=== PATIENT | female | born 1990 | race Caucasian/White ===

== ENCOUNTER 2018-01-08 20:15 | Inpatient (IN) ==
[2018-01-08] MEDS ORDERED: LACTATED RINGERS 1,000 ML IV STA (20:38)
[2018-01-08] MEDS ORDERED: DIPH/TET/ACEL PERT BOOSTER VACCINE 0.5 ML VIAL IM ONE (20:38)
[2018-01-08] MEDS ORDERED: HYDROmorphone 2 MG/1 ML VIAL IV STA (20:38)
[2018-01-08] MEDS ORDERED: ONDANSETRON 4 MG/2 ML VIAL IV STA (20:38)
[2018-01-08 20:48] LABS: Basophils # 0.1 10*3/uL (0.0-0.2); Basophils % 0.4 % (0.0-0.8); Eosinophils # 0.3 10*3/uL (0.0-0.87); Eosinophils % 1.4 % (0.00-10.9); Hematocrit 39.1 VOL% (35.7-47.0); Hemoglobin 13.1 GM/DL (12.0-16.0); Immature Granulocytes % 0.4 %; Immature Granulocytes Absolute 0.08 #; Lymphocytes # 6.2 10*3/uL (1.4-4.0); Lymphocytes % 34.2 % (21.3-54.2); Mean Corpuscular HGB Conc 33.5 GM/DL (32-36); Mean Corpuscular Hemoglobin 30 PG (27-34); Mean Corpuscular Volume 89.9 FL (87-102); Mean Platelet Volume 11.8 FL (9.6-12.0); Monocytes # 1.4 10*3/uL (0.11-0.8); Monocytes % 7.9 % (1.7-12.7); Neutrophils # 10.1 10*3/uL (1.4-7.4); Neutrophils % 55.7 % (38.7-73.9); Platelet Count 289 T/CUMM (130-400); Red Blood Count 4.35 MC/CUMM (3.8-5.5); Red Cell Distribution Width 13.5 % (9.3-17.3); White Blood Count 18.1 T/CUMM (4-12)
[2018-01-08 20:59] LABS: PT Patient Result 10.9 SECS; Partial Thromboplastin Time 25.4 SECS (0-40)
[2018-01-08 21:07] LABS: Barbiturates Screen,Urine Negative (Negative); Benzodiazepines Screen,Urine Negative (Negative); Cannabinoid Screen,Urine Negative (Negative); Opiate Screen,Urine Negative (Negative); Phencyclidine Screen,Urine Negative (Negative)
[2018-01-08 21:15] LABS: Apearance,Urine CLEAR (Clear); Bilirubin,Urine Negative (Negative); Blood, Urine Negative (Negative); Glucose,Urine (UA) Negative (Negative); Granular Casts,Urine 1 /LPF (0-1); Ketones,Urine Negative (Negative); Mucus,Urine Occasional /LPF (Occasional); Nitrite,Urine Negative (Negative); Protein,Urine 30 MG/DL; RBC,Urine 3 /HPF (0-4); Squamous Epithelial Cell,Urine Occasional /HPF (0-10); Urine Color Yellow (Yellow); Urine Specific Gravity 1.024 (1.001-1.035); WBC,Urine 2 /HPF (0-6)
[2018-01-08 21:22] LABS: Alanine Aminotransferase 16 U/L (13-56); Albumin 4.1 G/DL (3.4-5.0); Alkaline Phosphatase 74 U/L (45-117); Amylase 54 U/L (25-115); Aspartate Amino Transferase 17 U/L (0-37); Blood Urea Nitrogen 11 MG/DL (7-18); Calcium 8.6 MG/DL (8.5-10.1); Glucose 120 MG/DL (74-106); Osmolality,Calculated 276.5 MOS/KG (273-304); Potassium 3.2 MMOL/L (3.5-5.1); Sodium 139 MMOL/L (136-145); Total Protein 8.4 G/DL (6.4-8.3)
[2018-01-08] MEDS ORDERED: SODIUM CHLORIDE 0.9% 1,000 ML IV STA (21:45)
[2018-01-08 21:48] LABS: Lactic Acid 2.5 MMOL/L (0.4-2.0)
[2018-01-08] MEDS ORDERED: PROPOFOL 200 MG/20 ML VIAL IV ONE (21:51)
[2018-01-09] MEDS ORDERED: METHOCARBAMOL 500 MG TABLET PO PRN (01:57)
[2018-01-09] MEDS ORDERED: ACETAMINOPHEN 325 MG TABLET PO PRN (01:57)
[2018-01-09] MEDS ORDERED: clonazePAM 0.5 MG TABLET PO PRN (01:57)
[2018-01-09] MEDS ORDERED: ONDANSETRON 4 MG/2 ML VIAL IV PRN (01:57)
[2018-01-09] MEDS ORDERED: ZOLPIDEM 5 MG TABLET PO PRN ×3 (02:26→21:44)
[2018-01-09] MEDS: DEXTROSE 5% NACL 0.45% 1,000 ML IV SCH (02:31)
[2018-01-09] MEDS: HYDROmorphone 2 MG/1 ML VIAL IV PRN ×2 (02:44→20:10)
[2018-01-09] MEDS: PIPERACILLIN/TAZOBACTAM 3,375 MG in SODIUM CHLORIDE 0.9% 100 ML IV SCH ×3 (02:50→17:42)
[2018-01-09 06:38] LABS: Basophils % 0.1 % (0.0-0.8); Eosinophils % 0.1 % (0.00-10.9); Hematocrit 35.4 VOL% (35.7-47.0); Hemoglobin 11.7 GM/DL (12.0-16.0); Immature Granulocytes % 0.7 %; Immature Granulocytes Absolute 0.12 #; Lymphocytes # 1.6 10*3/uL (1.4-4.0); Lymphocytes % 8.9 % (21.3-54.2); Mean Corpuscular HGB Conc 33.1 GM/DL (32-36); Mean Corpuscular Hemoglobin 30 PG (27-34); Mean Corpuscular Volume 90.8 FL (87-102); Mean Platelet Volume 11.9 FL (9.6-12.0); Monocytes # 2.1 10*3/uL (0.11-0.8); Monocytes % 11.3 % (1.7-12.7); Neutrophils # 14.4 10*3/uL (1.4-7.4); Neutrophils % 78.9 % (38.7-73.9); Platelet Count 208 T/CUMM (130-400); Red Cell Distribution Width 13.5 % (9.3-17.3); White Blood Count 18.2 T/CUMM (4-12)
[2018-01-09 07:17] LABS: Albumin 3.7 G/DL (3.4-5.0); Bilirubin,Total 1.1 MG/DL (0.2-1.0); Osmolality,Calculated 270.8 MOS/KG (273-304); Potassium 3.7 MMOL/L (3.5-5.1); Total Protein 7.2 G/DL (6.4-8.3)
[2018-01-09] MEDS ORDERED: LIDOCAINE 1%/EPI INJ 20 ML VIAL ONE (08:30)
[2018-01-09] MEDS ORDERED: BUPIVACAINE 0.25% /EPI 10 ML VIAL ONE (08:30)
[2018-01-09] MEDS: MULTIVITAMIN (PRENATAL) TABLET PO SCH (08:43)
[2018-01-09] MEDS: PANTOPRAZOLE 40 MG TABLET PO SCH (08:43)
[2018-01-09] MEDS ORDERED: PROPOFOL 200 MG/20 ML VIAL IV ONE (09:11)
[2018-01-09] MEDS ORDERED: MIDAZOLAM 2 MG/2 ML VIAL ONE (09:11)
[2018-01-09] MEDS ORDERED: fentaNYL 100 MCG/2 ML VIAL ONE (09:11)
[2018-01-09] MEDS ORDERED: ONDANSETRON 4 MG/2 ML VIAL ONE ×2 (09:11→09:16)
[2018-01-09] MEDS ORDERED: SEVOFLURANE 1 UNIT/15 MINUTE INH ONE (09:11)
[2018-01-09] MEDS ORDERED: PHENYLEPHRINE 1 MG/10 ML SYRINGE IV ONE (09:12)
[2018-01-09] MEDS ORDERED: ZALEPLON 5 MG CAPSULE PO PRN (09:30)
[2018-01-10] MEDS: DEXTROSE 5% NACL 0.45% 1,000 ML IV SCH ×2 (01:36→04:08)
[2018-01-10] MEDS: PIPERACILLIN/TAZOBACTAM 3,375 MG in SODIUM CHLORIDE 0.9% 100 ML IV SCH ×2 (03:01→09:21)
[2018-01-10 06:10] LABS: Basophils % 0.3 % (0.0-0.8); Eosinophils # 0.5 10*3/uL (0.0-0.87); Eosinophils % 4.1 % (0.00-10.9); Hematocrit 34.5 VOL% (35.7-47.0); Hemoglobin 11.5 GM/DL (12.0-16.0); Immature Granulocytes % 0.4 %; Immature Granulocytes Absolute 0.05 #; Lymphocytes # 2.7 10*3/uL (1.4-4.0); Lymphocytes % 21.1 % (21.3-54.2); Mean Corpuscular HGB Conc 33.3 GM/DL (32-36); Mean Corpuscular Hemoglobin 30 PG (27-34); Mean Corpuscular Volume 90.8 FL (87-102); Mean Platelet Volume 12.7 FL (9.6-12.0); Monocytes # 1.8 10*3/uL (0.11-0.8); Monocytes % 14.1 % (1.7-12.7); Neutrophils # 7.8 10*3/uL (1.4-7.4); Platelet Count 203 T/CUMM (130-400); Red Cell Distribution Width 13.5 % (9.3-17.3)
[2018-01-10] MEDS: PANTOPRAZOLE 40 MG TABLET PO SCH (09:17)
[2018-01-10] MEDS: MULTIVITAMIN (PRENATAL) TABLET PO SCH (09:17)
[2018-01-10] MEDS: HYDROmorphone 2 MG/1 ML VIAL IV PRN (13:02)
[2018-01-10] MEDS ORDERED: SILVER SULFADIAZINE 1% CREAM 25 GM TUBE TOP SCH (13:30)
[2018-01-10 16:59] VITALS: BP 127/78
== END 2018-01-10 17:25 | disposition home or self-care (01) | DRG 902 ==
LOC: N.ED 20:15 → N.EDINP 23:46 → N.3E 01-09 00:53
PROVIDERS: ADMIT Surgery; ATTEND Surgery

== ENCOUNTER 2018-02-04 13:19 | Observation (INO) ==
[2018-02-04 14:36] LABS: Basophils % 0.4 % (0.0-0.8); Eosinophils # 0.2 10*3/uL (0.0-0.87); Hemoglobin 12.9 GM/DL (12.0-16.0); Immature Granulocytes % 0.4 %; Immature Granulocytes Absolute 0.02 #; Lymphocytes # 1.8 10*3/uL (1.4-4.0); Lymphocytes % 32.9 % (21.3-54.2); Mean Corpuscular HGB Conc 33.1 GM/DL (32-36); Mean Corpuscular Hemoglobin 30 PG (27-34); Mean Corpuscular Volume 90.9 FL (87-102); Mean Platelet Volume 11.5 FL (9.6-12.0); Monocytes # 0.7 10*3/uL (0.11-0.8); Monocytes % 12.1 % (1.7-12.7); Neutrophils # 2.9 10*3/uL (1.4-7.4); Neutrophils % 51.2 % (38.7-73.9); Platelet Count 235 T/CUMM (130-400); Red Blood Count 4.29 MC/CUMM (3.8-5.5); Red Cell Distribution Width 13.4 % (9.3-17.3); White Blood Count 5.6 T/CUMM (4-12)
[2018-02-04 16:50] LABS: Apearance,Urine CLOUDY (Clear); Bilirubin,Urine Negative (Negative); Blood, Urine Large mg/dL (Negative); Glucose,Urine (UA) Negative (Negative); Ketones,Urine Negative (Negative); Mucus,Urine Occasional /LPF (Occasional); Nitrite,Urine Negative (Negative); Protein,Urine 100 MG/DL; RBC,Urine 1377 /HPF (0-4); Squamous Epithelial Cell,Urine Occasional /HPF (0-10); Urine Color Yellow (Yellow); Urine Specific Gravity 1.016 (1.001-1.035); Urine Urobilinogen < 2.0 EU/DL (0.2-1.0); WBC,Urine 32 /HPF (0-6)
[2018-02-04 17:53] LABS: Osmolality,Calculated 269.8 MOS/KG (273-304); Potassium 3.6 MMOL/L (3.5-5.1)
[2018-02-04] MEDS ORDERED: ONDANSETRON 4 MG/2 ML VIAL IV PRN (19:19)
[2018-02-04] MEDS ORDERED: ACETAMINOPHEN 500 MG TABLET PO PRN (19:19)
[2018-02-04] MEDS ORDERED: METHOTREXATE 50 MG/2 ML VIAL IM ONE (19:19)
[2018-02-04] MEDS ORDERED: clonazePAM 0.5 MG TABLET PO ONE (23:42)
[2018-02-05 07:41] VITALS: BP 80/48
[2018-02-05 08:03] LABS: Basophils % 0.4 % (0.0-0.8); Eosinophils # 0.5 10*3/uL (0.0-0.87); Eosinophils % 6.4 % (0.00-10.9); Hematocrit 34.4 VOL% (35.7-47.0); Hemoglobin 11.8 GM/DL (12.0-16.0); Immature Granulocytes % 0.3 %; Immature Granulocytes Absolute 0.02 #; Lymphocytes % 37.6 % (21.3-54.2); Mean Corpuscular HGB Conc 34.3 GM/DL (32-36); Mean Corpuscular Hemoglobin 31 PG (27-34); Mean Corpuscular Volume 89.4 FL (87-102); Mean Platelet Volume 11.8 FL (9.6-12.0); Monocytes % 12.6 % (1.7-12.7); Neutrophils # 3.4 10*3/uL (1.4-7.4); Neutrophils % 42.7 % (38.7-73.9); Platelet Count 218 T/CUMM (130-400); Red Blood Count 3.85 MC/CUMM (3.8-5.5); Red Cell Distribution Width 13.4 % (9.3-17.3)
[2018-02-05] MEDS ORDERED: PANTOPRAZOLE 40 MG TABLET PO SCH (09:00)
== END 2018-02-05 11:55 | disposition home or self-care (01) ==
LOC: N.ED 13:19 → N.EDINP 19:18 → INTOOBSV 19:18 → N.OB 21:20
PROVIDERS: ADMIT Obstetrics & Gynecology; ATTEND Obstetrics & Gynecology

== ENCOUNTER 2018-02-22 04:36 | Observation (INO) ==
[2018-02-22] MEDS ORDERED: LACTATED RINGERS 1,000 ML IV ONE ×2 (06:31→10:46)
[2018-02-22] MEDS ORDERED: ONDANSETRON 4 MG/2 ML VIAL IV STA (06:31)
[2018-02-22] MEDS ORDERED: MORPHINE 4 MG/1 ML VIAL IV STA (06:31)
[2018-02-22 06:55] LABS: Basophils % 0.2 % (0.0-0.8); Hematocrit 30.5 VOL% (35.7-47.0); Hemoglobin 10.4 GM/DL (12.0-16.0); Immature Granulocytes % 0.5 %; Immature Granulocytes Absolute 0.09 #; Lymphocytes # 1.6 10*3/uL (1.4-4.0); Lymphocytes % 9.3 % (21.3-54.2); Mean Corpuscular HGB Conc 34.1 GM/DL (32-36); Mean Corpuscular Hemoglobin 31 PG (27-34); Mean Corpuscular Volume 90.8 FL (87-102); Mean Platelet Volume 11.5 FL (9.6-12.0); Monocytes # 0.8 10*3/uL (0.11-0.8); Neutrophils # 14.2 10*3/uL (1.4-7.4); Platelet Count 311 T/CUMM (130-400); Red Blood Count 3.36 MC/CUMM (3.8-5.5); Red Cell Distribution Width 13.4 % (9.3-17.3); White Blood Count 16.8 T/CUMM (4-12)
[2018-02-22 07:17] LABS: Albumin 4.2 G/DL (3.4-5.0); Calcium 9.2 MG/DL (8.5-10.1); Potassium 4.3 MMOL/L (3.5-5.1); Total Protein 8.3 G/DL (6.4-8.3)
[2018-02-22] MEDS ORDERED: PANTOPRAZOLE 40 MG VIAL IV STA (08:47)
[2018-02-22] MEDS ORDERED: diphenhydrAMINE 50 MG/1 ML VIAL IV PRN (09:13)
[2018-02-22] MEDS ORDERED: ONDANSETRON 4 MG/2 ML VIAL IV PRN ×2 (09:13→10:49)
[2018-02-22] MEDS ORDERED: MORPHINE 10 MG/1 ML VIAL IV PRN (09:13)
[2018-02-22] MEDS ORDERED: PROMETHAZINE INJ 25 MG in SODIUM CHLORIDE 0.9% 50 ML IV PRN (09:13)
[2018-02-22] MEDS ORDERED: MEPERIDINE 25 MG/1 ML VIAL IV PRN (09:13)
[2018-02-22] MEDS ORDERED: TISSUE ADHESIVE 1 EACH APPLICATOR TOP ONE ×2 (10:19→10:26)
[2018-02-22 10:25] LABS: Barbiturates Screen,Urine Negative (Negative); Benzodiazepines Screen,Urine Positive (Negative); Cannabinoid Screen,Urine Negative (Negative); Opiate Screen,Urine Positive (Negative); Phencyclidine Screen,Urine Negative (Negative)
[2018-02-22] MEDS ORDERED: MEPERIDINE 25 MG/1 ML VIAL ONE (10:39)
[2018-02-22] MEDS ORDERED: ONDANSETRON 4 MG/2 ML VIAL ONE ×2 (10:39→10:46)
[2018-02-22] MEDS ORDERED: DESFLURANE 1 UNIT/15 MINUTE INH ONE (10:45)
[2018-02-22] MEDS ORDERED: DEXAMETHASONE 10 MG/1 ML VIAL ONE (10:45)
[2018-02-22] MEDS ORDERED: PROPOFOL 200 MG/20 ML VIAL IV ONE (10:45)
[2018-02-22] MEDS ORDERED: MIDAZOLAM 2 MG/2 ML VIAL ONE (10:45)
[2018-02-22] MEDS ORDERED: fentaNYL 100 MCG/2 ML VIAL ONE (10:45)
[2018-02-22] MEDS ORDERED: PHENYLEPHRINE 1 MG/10 ML SYRINGE IV ONE (10:46)
[2018-02-22] MEDS ORDERED: NEOSTIGMINE 10 MG/10 ML VIAL ONE ×2 (10:46)
[2018-02-22] MEDS ORDERED: ROCURONIUM 100 MG/10 ML VIAL IV ONE (10:46)
[2018-02-22] MEDS ORDERED: SUCCINYLCHOLINE 200 MG/10 ML VIAL ONE (10:46)
[2018-02-22] MEDS ORDERED: GLYCOPYRROLATE 0.4 MG/2 ML VIAL ONE (10:46)
[2018-02-22] MEDS ORDERED: KETOROLAC 30 MG/1 ML VIAL ONE (10:46)
[2018-02-22] MEDS ORDERED: BISACODYL 10 MG SUPP RECTAL PRN (10:49)
[2018-02-22] MEDS ORDERED: MAGNESIUM HYDROXIDE SUSP 30 ML UDCUP PO PRN (10:49)
[2018-02-22] MEDS ORDERED: DOCUSATE SODIUM 100 MG CAPSULE PO PRN (10:49)
[2018-02-22] MEDS ORDERED: IBUPROFEN 800 MG TABLET PO PRN (10:49)
[2018-02-22] MEDS ORDERED: ACETAMINOPHEN 325 MG TABLET PO PRN (10:49)
[2018-02-22] MEDS ORDERED: BENZOCAINE/MENTHOL LOZENGE 18/BOX PO PRN (10:49)
[2018-02-22] MEDS ORDERED: oxyCODONE/ACETAMINOPHEN 5-325 MG TABLET PO PRN (10:50)
[2018-02-22] MEDS ORDERED: LACTATED RINGERS 1,000 ML IV SCH (11:00)
[2018-02-22 14:07] VITALS: BP 97/62
[2018-02-22] MEDS ORDERED: KETOROLAC 30 MG/1 ML VIAL IV SCH (15:00)
[2018-02-22] MEDS ORDERED: ceFAZolin 1,000 MG in SYRINGE 1 EACH IV SCH (17:00)
== END 2018-02-22 14:50 | disposition home or self-care (01) ==
LOC: N.ED 04:36 → N.EDINP 04:36 → N.OB 08:48
PROVIDERS: ADMIT Obstetrics & Gynecology; ATTEND Obstetrics & Gynecology